=== PATIENT | male | born 1980 | race Caucasian/White ===

== ENCOUNTER 2019-10-09 18:44 | Inpatient (IN) | payer OTHER ==
[~2019-10-09] VITALS: Ht 167.6 cm; Wt 84.6 kg
[2019-10-09] MEDS ORDERED: ACETAMINOPHEN 325 MG TABLET PO PRN ×2 (19:30→21:30)
[2019-10-09] MEDS ORDERED: 0.9% SODIUM CHLORIDE 10 ML SYRINGE IVP PRN (19:30)
[2019-10-09 20:40] VITALS: BP 120/76
[2019-10-09] MEDS ORDERED: IPRATROPIUM BROMIDE 0.5 MG/2.5 ML NEB SOLUTION NEB PRN (21:30)
[2019-10-09] MEDS ORDERED: ZOLPIDEM TARTRATE 5 MG TABLET PO PRN (21:30)
[2019-10-09] MEDS ORDERED: MAGNESIUM HYDROXIDE SUSPENSION 30 ML UDCUP PO PRN (21:30)
[2019-10-09] MEDS ORDERED: ONDANSETRON HCL 4 MG/2 ML VIAL IVP PRN (21:30)
[2019-10-09] MEDS ORDERED: ALBUTEROL SULFATE 2.5 MG/0.5 ML NEB SOLUTION NEB PRN (21:30)
[2019-10-09] MEDS ORDERED: BISACODYL 10 MG RECTAL RECTAL SUPPOSITORY PR PRN (21:30)
[2019-10-09 23:42] VITALS: BP 103/69
[2019-10-10 03:44] VITALS: BP 115/65
[2019-10-10 07:43] VITALS: BP 117/69
[2019-10-10] MEDS: HEPARIN SODIUM,PORCINE 5,000 UNITS/ML VIAL SQ SCH ×4 (08:00→23:24)
[2019-10-10] MEDS: DOCUSATE SODIUM 100 MG CAPSULE PO SCH ×2 (08:31→21:00)
[2019-10-10 11:04] VITALS: BP 124/68
[2019-10-10] MEDS: OLANZapine 5 MG TABLET PO SCH (13:41)
[2019-10-10 15:45] VITALS: BP 99/64
[2019-10-10 20:00] VITALS: BP 100/57
[2019-10-11 06:00] VITALS: BP 110/59
[2019-10-11] MEDS: HEPARIN SODIUM,PORCINE 5,000 UNITS/ML VIAL SQ SCH ×3 (08:00→23:54)
[2019-10-11] MEDS: DOCUSATE SODIUM 100 MG CAPSULE PO SCH ×2 (08:21→20:11)
[2019-10-11] MEDS: OLANZapine 5 MG TABLET PO SCH (08:23)
[2019-10-11 09:00] VITALS: BP 118/70
[2019-10-11 19:48] VITALS: BP 108/62
[2019-10-12 00:08] VITALS: BP 105/58
[2019-10-12 02:53] LABS: AMPHET/METH SCREEN,URINE NEGATIVE (NEGATIVE); BARBITURATE SCREEN, URINE NEGATIVE (NEGATIVE); BENZODIAZEPINES SCREEN,URINE NEGATIVE (NEGATIVE); CANNABINOID SCREEN,URINE NEGATIVE (NEGATIVE); COCAINE SCREEN,URINE NEGATIVE (NEGATIVE); METHADONE SCREEN, URINE NEGATIVE (NEGATIVE); OPIATE SCREEN,URINE NEGATIVE (NEGATIVE)
[2019-10-12 02:54] LABS: PHENCYCLIDINE SCREEN,URINE NEGATIVE (NEGATIVE)
[2019-10-12 06:02] VITALS: BP 124/71
[2019-10-12 07:28] VITALS: BP 127/76
[2019-10-12] MEDS: OLANZapine 5 MG TABLET PO SCH (07:59)
[2019-10-12] MEDS: HEPARIN SODIUM,PORCINE 5,000 UNITS/ML VIAL SQ SCH ×2 (08:00→16:00)
[2019-10-12] MEDS: DOCUSATE SODIUM 100 MG CAPSULE PO SCH ×2 (08:00→20:25)
[2019-10-12 11:36] VITALS: BP 116/71
[2019-10-12 15:41] VITALS: BP 107/68
[2019-10-12 19:49] VITALS: BP 106/69
[2019-10-13 07:48] VITALS: BP 120/76
[2019-10-13] MEDS: HEPARIN SODIUM,PORCINE 5,000 UNITS/ML VIAL SQ SCH ×4 (08:00→23:46)
[2019-10-13] MEDS: OLANZapine 5 MG TABLET PO SCH (08:13)
[2019-10-13] MEDS: DOCUSATE SODIUM 100 MG CAPSULE PO SCH ×2 (08:13→20:02)
[2019-10-13 12:13] VITALS: BP 117/76
[2019-10-13 16:07] VITALS: BP 109/65
[2019-10-13 19:15] VITALS: BP 108/57
[2019-10-13 23:20] VITALS: BP 100/64
[2019-10-14 06:00] VITALS: BP 101/69
[2019-10-14 07:36] VITALS: BP_SYST 108; BP_DIAS 54; BP_DIAS 75
[2019-10-14] MEDS: HEPARIN SODIUM,PORCINE 5,000 UNITS/ML VIAL SQ SCH ×2 (08:00→15:05)
[2019-10-14] MEDS: OLANZapine 5 MG TABLET PO SCH (08:11)
[2019-10-14] MEDS: DOCUSATE SODIUM 100 MG CAPSULE PO SCH ×2 (08:11→21:00)
[2019-10-14 11:26] VITALS: BP 105/64
[2019-10-14 16:04] VITALS: BP 104/65
[2019-10-14 19:55] VITALS: BP 125/62
[2019-10-14] MEDS: OLANZapine 10 MG TABLET PO SCH (21:00)
[2019-10-15 04:00] VITALS: BP 133/68
[2019-10-15] MEDS: HEPARIN SODIUM,PORCINE 5,000 UNITS/ML VIAL SQ SCH ×3 (08:00→16:00)
[2019-10-15] MEDS: DOCUSATE SODIUM 100 MG CAPSULE PO SCH ×2 (08:33→21:00)
[2019-10-15 10:04] VITALS: BP 117/78
[2019-10-15 11:25] VITALS: BP 130/77
[2019-10-15 15:25] VITALS: BP 116/74
[2019-10-15 20:18] VITALS: BP 115/64
[2019-10-15] MEDS: OLANZapine 10 MG TABLET PO SCH (21:00)
[2019-10-16 07:35] VITALS: BP 108/72
[2019-10-16] MEDS: HEPARIN SODIUM,PORCINE 5,000 UNITS/ML VIAL SQ SCH ×4 (08:00→23:11)
[2019-10-16] MEDS: DOCUSATE SODIUM 100 MG CAPSULE PO SCH ×2 (09:00→21:00)
[2019-10-16 16:55] VITALS: BP 93/70
[2019-10-16] MEDS: OLANZapine 10 MG TABLET PO SCH (21:00)
[2019-10-17 04:00] VITALS: BP 123/76
[2019-10-17 08:00] VITALS: BP 102/59
[2019-10-17] MEDS: HEPARIN SODIUM,PORCINE 5,000 UNITS/ML VIAL SQ SCH (08:00)
[2019-10-17] MEDS: DOCUSATE SODIUM 100 MG CAPSULE PO SCH (08:32)
[2019-10-17] MEDS ORDERED: OLAN10TA3 PO (14:24)
== END 2019-10-17 15:00 | DRG 885 ==
LOC: EMS 18:51 → 6S 19:26
PROVIDERS: ADMIT Hospitalist; ATTEND Hospitalist
DX: F20.0 Paranoid schizophrenia (principal); F33.2 Major depressive disorder, recurrent severe without psychotic features; R45.851 Suicidal ideations
CPT/HCPCS: J1644

== ENCOUNTER 2019-10-17 23:09 | Inpatient (IN) | payer OTHER ==
[~2019-10-17] VITALS: Ht 170.2 cm; Wt 90.5 kg
[~2019-10-17 23:09] MED LIST: OLAN10TA3 PO
[2019-10-18 01:27] VITALS: BP 117/77
[2019-10-18] MEDS ORDERED: OxyCODONE HCL/ACETAMINOPHEN 5-325 MG TABLET PO PRN ×2 (01:45)
[2019-10-18] MEDS ORDERED: 0.9% SODIUM CHLORIDE 10 ML SYRINGE IVP PRN (01:45)
[2019-10-18] MEDS ORDERED: ONDANSETRON HCL 4 MG/2 ML VIAL IVP PRN (01:45)
[2019-10-18 03:34] LABS: AMPHET/METH SCREEN,URINE NEGATIVE (NEGATIVE); BARBITURATE SCREEN, URINE NEGATIVE (NEGATIVE); BENZODIAZEPINES SCREEN,URINE NEGATIVE (NEGATIVE); CANNABINOID SCREEN,URINE NEGATIVE (NEGATIVE); COCAINE SCREEN,URINE NEGATIVE (NEGATIVE); METHADONE SCREEN, URINE NEGATIVE (NEGATIVE); OPIATE SCREEN,URINE NEGATIVE (NEGATIVE); PHENCYCLIDINE SCREEN,URINE NEGATIVE (NEGATIVE)
[2019-10-18 05:02] VITALS: BP 106/54
[2019-10-18 07:54] VITALS: BP 108/57
[2019-10-18] MEDS ORDERED: OLANZapine 5 MG TABLET PO SCH (09:00)
[2019-10-18] MEDS: QUEtiapine FUMARATE 25 MG TABLET PO SCH (09:00)
[2019-10-18] MEDS: DOCUSATE SODIUM 100 MG CAPSULE PO SCH ×2 (09:00→21:00)
[2019-10-18 11:10] VITALS: BP 102/58
[2019-10-18 20:05] VITALS: BP 86/50
[2019-10-18] MEDS: QUEtiapine FUMARATE 100 MG TABLET PO SCH (21:55)
[2019-10-18 21:56] VITALS: BP 93/52
[2019-10-19 05:00] VITALS: BP 95/58
[2019-10-19] MEDS: DOCUSATE SODIUM 100 MG CAPSULE PO SCH ×4 (08:06→20:54)
[2019-10-19] MEDS: QUEtiapine FUMARATE 25 MG TABLET PO SCH ×2 (08:06→09:00)
[2019-10-19 08:08] VITALS: BP 90/55
[2019-10-19 15:58] VITALS: BP 104/62
[2019-10-19 20:50] VITALS: BP 129/74
[2019-10-19] MEDS: QUEtiapine FUMARATE 100 MG TABLET PO SCH (20:52)
[2019-10-20 04:50] VITALS: BP 97/61
[2019-10-20] MEDS: QUEtiapine FUMARATE 25 MG TABLET PO SCH (08:46)
[2019-10-20] MEDS: DOCUSATE SODIUM 100 MG CAPSULE PO SCH ×2 (08:48→21:00)
[2019-10-20] MEDS: QUEtiapine FUMARATE 100 MG TABLET PO SCH (21:03)
[2019-10-21 08:09] VITALS: BP 104/63
[2019-10-21] MEDS: DOCUSATE SODIUM 100 MG CAPSULE PO SCH ×3 (08:19→20:55)
[2019-10-21] MEDS: QUEtiapine FUMARATE 25 MG TABLET PO SCH (08:19)
[2019-10-21 16:07] VITALS: BP 108/66
[2019-10-21] MEDS: QUEtiapine FUMARATE 100 MG TABLET PO SCH (20:52)
[2019-10-22] MEDS: QUEtiapine FUMARATE 25 MG TABLET PO SCH (07:49)
[2019-10-22 08:07] VITALS: BP 102/68
[2019-10-22] MEDS: DOCUSATE SODIUM 100 MG CAPSULE PO SCH ×3 (09:00→21:00)
[2019-10-22 15:36] VITALS: BP 106/74
[2019-10-22] MEDS: QUEtiapine FUMARATE 100 MG TABLET PO SCH (20:11)
[2019-10-23] MEDS: QUEtiapine FUMARATE 25 MG TABLET PO SCH (08:24)
[2019-10-23] MEDS: DOCUSATE SODIUM 100 MG CAPSULE PO SCH ×3 (08:25→21:00)
[2019-10-23 20:08] VITALS: BP 110/70
[2019-10-23] MEDS: QUEtiapine FUMARATE 100 MG TABLET PO SCH (20:28)
[2019-10-24 04:00] VITALS: BP 104/104
[2019-10-24 08:00] VITALS: BP 99/57
[2019-10-24] MEDS: QUEtiapine FUMARATE 25 MG TABLET PO SCH (08:15)
[2019-10-24] MEDS: DOCUSATE SODIUM 100 MG CAPSULE PO SCH ×2 (08:31→21:00)
[2019-10-24 19:57] VITALS: BP 108/66
[2019-10-24] MEDS: QUEtiapine FUMARATE 200 MG TABLET PO SCH (20:03)
[2019-10-25 07:26] VITALS: BP 91/62
[2019-10-25] MEDS: DOCUSATE SODIUM 100 MG CAPSULE PO SCH ×2 (09:00→21:00)
[2019-10-25] MEDS: QUEtiapine FUMARATE 100 MG TABLET PO SCH (09:00)
[2019-10-25] MEDS ORDERED: QUEtiapine FUMARATE 100 MG TABLET PO ONE (12:30)
[2019-10-25] MEDS: QUEtiapine FUMARATE 200 MG TABLET PO SCH (20:50)
[2019-10-26] MEDS: QUEtiapine FUMARATE 100 MG TABLET PO SCH (08:50)
[2019-10-26] MEDS: DOCUSATE SODIUM 100 MG CAPSULE PO SCH ×2 (08:53→20:21)
[2019-10-26 15:45] VITALS: BP 108/62
[2019-10-26] MEDS: QUEtiapine FUMARATE 200 MG TABLET PO SCH (20:20)
[2019-10-26 20:41] VITALS: BP 111/76
[2019-10-27 04:06] VITALS: BP 97/61
[2019-10-27 08:42] VITALS: BP 115/74
[2019-10-27] MEDS: QUEtiapine FUMARATE 100 MG TABLET PO SCH (09:00)
[2019-10-27] MEDS: DOCUSATE SODIUM 100 MG CAPSULE PO SCH ×3 (09:00→23:29)
[2019-10-27] MEDS: HALOPERIDOL 10 MG TABLET PO SCH (20:33)
[2019-10-27 21:19] VITALS: BP 134/76
[2019-10-28 06:13] VITALS: BP 114/76
[2019-10-28] MEDS: HALOPERIDOL 10 MG TABLET PO SCH ×2 (08:19→20:24)
[2019-10-28] MEDS: DOCUSATE SODIUM 100 MG CAPSULE PO SCH (20:25)
[2019-10-29] MEDS: HALOPERIDOL 10 MG TABLET PO SCH ×2 (07:58→20:02)
[2019-10-29] MEDS: DOCUSATE SODIUM 100 MG CAPSULE PO SCH ×2 (08:00→20:02)
[2019-10-29 17:02] VITALS: BP 100/55
[2019-10-29 19:33] VITALS: BP 107/59
[2019-10-30] MEDS: HALOPERIDOL 10 MG TABLET PO SCH ×2 (08:04→20:08)
[2019-10-30] MEDS: DOCUSATE SODIUM 100 MG CAPSULE PO SCH ×2 (08:06→21:00)
[2019-10-30 09:00] VITALS: BP 100/60
[2019-10-30 17:26] VITALS: BP 95/52
[2019-10-30 20:40] VITALS: BP 107/63
[2019-10-31 04:00] VITALS: BP 105/62
[2019-10-31] MEDS: HALOPERIDOL 10 MG TABLET PO SCH (09:05)
[2019-10-31] MEDS: DOCUSATE SODIUM 100 MG CAPSULE PO SCH (09:05)
[2019-10-31] MEDS ORDERED: HALO10 PO (16:22)
== END 2019-10-31 19:27 | DRG 885 ==
LOC: EMS 23:11 → 6S 10-18 00:54 → EMS 10-18 01:16 → 6S 10-26 15:48
PROVIDERS: ADMIT Psychiatry & Neurology Child & Adolescent Psychiatry; ATTEND Psychiatry & Neurology Child & Adolescent Psychiatry
DX: F33.3 Major depressive disorder, recurrent, severe with psychotic symptoms (principal); R45.851 Suicidal ideations; F19.10 Other psychoactive substance abuse, uncomplicated; F41.9 Anxiety disorder, unspecified